=== PATIENT | female | born 1985 | race African-American/Black ===

== ENCOUNTER 2019-03-16 22:03 | Emergency (ER) | payer BC ==
[~2019-03-16] VITALS: Ht 170.2 cm; Wt 89.2 kg
[2019-03-17] MEDS ORDERED: BACITRACIN ZINC OINT UDPKT TOP ONE (00:15)
[2019-03-17] MEDS ORDERED: LIDOCAINE HCL/PF 1% 10 MG/ML 5ML VIAL IJ ONE (00:15)
[2019-03-17 00:48] VITALS: BP 123/65
== END 2019-03-17 00:49 | disposition home or self-care (01) ==
LOC: ER 22:03
DX: S01.81XA Laceration without foreign body of other part of head, initial encounter (principal); W01.118A Fall on same level from slipping, tripping and stumbling with subsequent striking against other sharp object, initial encounter; Y93.01 Activity, walking, marching and hiking; Y92.89 Other specified places as the place of occurrence of the external cause
CPT/HCPCS: 12011; 99283; J3490